=== PATIENT | female | born 1985 | race Caucasian/White ===

== ENCOUNTER 2024-09-22 19:28 | Emergency (ER) | payer OTHER, SELFPAY ==
[2024-09-22] VITALS (11 sets, daily range): BP systolic 113–137; BP diastolic 75–106; PULSE 85–103; RESP 11–18; TEMP 37.1; O2SAT 94–99; BMI 33.2
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
--- NOTE | 2024-09-22 19:55 | EKG12_ITS ---
Test Reason : DYSRHYTHMIA Blood Pressure : */* mmHG Vent. Rate : 90 BPM Atrial Rate : 90 BPM P-R Int : 162 ms QRS Dur : 86 ms QT Int : 354 ms P-R-T Axes : 75 -21 51 degrees QTcB Int : 433 ms Normal sinus rhythm Low voltage QRS Borderline ECG Confirmed by AIMEE AC MD ([id number]), film or videotape editor DARA SAGASTUME ([id number]) on 09/23/2024 9:47:11 AM Referred By: Alberto Ladd Confirmed By: AIMEE AC MD
[2024-09-22] MEDS: Morphine 4 MG/ML Syringe IV ×2 (20:11→22:24)
[2024-09-22] MEDS: Ondansetron 4 MG/2 ML Vial IV (20:11)
[2024-09-22] MEDS: Diphth,Pertuss(Acell),Tet Vac 0.5 ML Vial IM (20:12)
[2024-09-22] MEDS: 0.9% Normal Saline (1000mL) 1,000 ML 999 ML IV (20:12)
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
[2024-09-22 20:23] LABS: Absolute Neutrophil Count 4.8 X10^3/uL (2.0-7.7); Basophil# 0.06 X10^3/uL; Basophil% 0.6 % (0-1); Eosinophil# 0.61 X10^3/uL; Eosinophils% 6.4 % (0-5); Hematocrit 34.1 % (37-47); Hemoglobin 11.5 g/dL (12.0-15.0); Lymphocyte % 35.5 % (19-41); Mean Corp Hgb Conc 33.7 g/dL (32-36); Mean Corpuscular Hgb 29.9 pg (27.0-32.0); Mean Corpuscular Volume 88.6 fL (81-99); Mean Platelet Vol. 9.5 fl (6.2-12.0); Monocyte# 0.67 X10^3/uL; NRBC Flagged by Analyzer 0 % (0-5); Neutrophil % 50.2 % (47-70); Platelet Count 292 K/mm3 (150-450); RBC Distribution Width CV 13.3 % (11.6-14.6); RBC Distribution Width SD 43.6 fl (35.1-43.9); Red Blood Count 3.85 M/mm3 (4.2-5.4); White Blood Count 9.6 K/mm3 (4.4-11.0)
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
[2024-09-22 20:34] LABS: International Normalized Ratio 1.2; Prothrombin Time (Protime)PT. 15.6 SECONDS (11.7-14.9)
[2024-09-22 20:35] LABS: Partial Thromboplast Time 31.3 Seconds (24.1-36.2)
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
[2024-09-22 20:45] LABS: Internal QC Validated? YES +Cl - CLEAR BKGD; Pregnancy, Serum, hCG Quali. NEGATIVE Negative
[2024-09-22 20:48] LABS: AST(SGOT) 23 U/L (<=31); Alanine Aminotransfer ALT/SGPT 14 U/L (<=34); Albumin, Serum 3.9 g/dL (3.5-5.0); Alkaline Phosphatase 47 U/L (35-104); Anion Gap 10 (5-15); BUN 12 mg/dL (4-19); BUN/Creat Ratio 13.9 RATIO (10-20); Bilirubin, Direct 0.14 mg/dL (0.00-0.30); Calcium,Total 8.4 mg/dL (7.6-11.0); Carbon Dioxide 22.9 mmol/L (21.0-32.0); Chloride 107 mmol/L (98-108); Creatinine, Serum 0.85 mg/dL (0.70-1.20); EST Glomerular Filtration Rate 88 (>60); Estimated Creatinine Clearance 79.94 ml/min (50-250); Globulin 2.3 g/dL (2.2-4.2); Glucose 101 mg/dL (70-99); Potassium 3.5 mmol/L (3.3-5.1); Protein, Total 6.2 g/dL (5.9-8.4); Sodium Level 140 mmol/L (133-145); Total Bilirubin 0.25 mg/dL (0.00-1.30)
[2024-09-22] MEDS: Etomidate 20 MG/10 ML Vial 11 MG IV (22:24)
[2024-09-22] MEDS: Etomidate 20 MG/10 ML Vial IV (22:42)
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
[2024-09-22 23:37] LABS: Mucous, Urine 0 SEEN /hpf (<or=2+); Red Blood Cells-Urine 0 SEEN /hpf (0-5); Squamous Epithelial Cells - UA 0 SEEN /hpf (5-10); White Blood Cells 0 SEEN /hpf (0-5)
[2024-09-22 23:38] LABS: Color, Urine Yellow (Yellow); Glucose, Dipstick Normal (Normal); Ketone-Dipstick 15 mg/dl (Negative); Leukocyte Esterase-Dipstick Negative /ul (Negative); Nitrite-Dipstick Negative (Negative); Occult Blood-Urine 25 /ul (Negative); Protein-Dipstick 15 mg/dl (Negative); Urine Bilirubin Dipstick Negative (Negative); Urine Clarity Clear (Clear); Urine Urobilinogen Normal (Normal)
[2024-09-23] VITALS: BP 122/80; PULSE 103; RESP 13; O2SAT 100
[2024-09-23 00:07] LABS: Amorphous Sediment 2+; Bacteria 2+ /hpf (None Seen)
[2024-09-23 00:11] VITALS: BP 122/80; PULSE 88; RESP 11; TEMP 36.6; O2SAT 99
[2024-09-23] MEDS: HYDROcodone Bitartrate/Apap 5/325 Tablet PO (00:38)
[2024-09-23] MEDS: Ondansetron ODT 4 MG Tablet PO (00:38)
== END 2024-09-23 00:57 | disposition home or self-care (01) ==
PROVIDERS: Emergency Provider Emergency Medicine; PCP Family Medicine; Referring Provider Emergency Medicine; Visit Provider Emergency Medicine
DX: S52.572A Other intraarticular fracture of lower end of left radius, initial encounter for closed fracture (principal); S06.9X1A Unspecified intracranial injury with loss of consciousness of 30 minutes or less, initial encounter; S52.612A Displaced fracture of left ulna styloid process, initial encounter for closed fracture; S00.11XA Contusion of right eyelid and periocular area, initial encounter; S01.20XA Unspecified open wound of nose, initial encounter; S80.211A Abrasion, right knee, initial encounter; V18.4XXA Pedal cycle driver injured in noncollision transport accident in traffic accident, initial encounter; Y93.55 Activity, bike riding; Z23 Encounter for immunization
CPT/HCPCS: 25605; 70450; 70486; 71260; 72125; 73080; 73110; 73562; 74177; 80048; 80076; 81001; 84703; 85025; 85610; 85730; 90715; 93005; 96361; 96374; 96375; 96376; 99152; 99285; Q9967; A4216; J2405